=== PATIENT | female | born 1985 | race Two or more races ===

== ENCOUNTER 2018-06-02 16:30 | Inpatient (IN) | payer OTHER ==
[2018-06-02] MEDS ORDERED: TUBERCULIN PPD 5 TU/0.1ML SYRINGE (IN PATIENT USE ONLY) ID ONE ×2 (16:56→18:00)
[2018-06-02 17:25] VITALS: BMI 32.1
[2018-06-02] MEDS ORDERED: DEXTROSE 5%-LACTATED RINGERS 1,000 ML IV SCH ×2 (18:15→23:15)
[2018-06-02] MEDS ORDERED: DINOPROSTONE 10 MG VAGINAL SUPPOSITORY VG ONE (18:15)
[2018-06-02 18:21] LABS: BASO % 0.7 % (0-2.0); EOS % 1.9 % (0-4.5); HEMATOCRIT 28.4 % (32.4-45.2); HEMOGLOBIN 9.4 GM/dL (10.7-15.3); LYMPH % 24.6 % (8-40); MCH 25.1 pg (25.7-33.7); MCHC 33.3 g/dl (32.0-36.0); MEAN CELL VOLUME 75.5 fl (80-96); MEAN PLT VOLUME 9.6 fl (7.5-11.1); MONO % 6.3 % (3.8-10.2); NEUT % 66.5 % (42.8-82.8); PLATELET COUNT 262 K/MM3 (134-434); RBC 3.76 M/mm3 (3.60-5.2); RDW 17.6 % (11.6-15.6); WHITE BLOOD COUNT 6.7 K/mm3 (4.0-10.0)
[2018-06-02 18:40] LABS: INR 0.92 (0.83-1.09); PROTHROMBIN TIME (PATIENT) 10.4 SEC (9.7-13.0)
[2018-06-02 18:43] LABS: ACTIVATED PTT 26.2 SECONDS (25.2-36.5)
[2018-06-02 19:17] LABS: ANION GAP 10 (8-16); BLOOD UREA NITROGEN 10 mg/dL (7-18); CALCIUM 8.8 mg/dL (8.5-10.1); CHLORIDE 107 mmol/L (98-107); CO2 25 mmol/L (21-32); CREATININE 0.7 mg/dL (0.55-1.02); GLUCOSE,RANDOM 86 mg/dL (74-106); SODIUM 142 mmol/L (136-145)
--- NOTE | 2018-06-02 21:19 | HP ---
Past Medical History - Primary Care Physician PCP:: Rene Vargas - Admission Chief Complaint: 39.6 weeks, for cervidil induction History of Present Illness: 32 yo f edc by sono 06/03/18 39.6 weeks ,had isolated heart late deceleration, in office , had 06/01 BPP, was referred for cervidil induction , patient has irregular contraction with several variable with late component , variability is good . low dose pitocin vs observation ,also c/s discussed , risks explained , requesting to have c/s, risks of c/s discussed History Source: Patient Limitations to Obtaining History: No Limitations - Past Medical History ...: 3 ...Para: 1 ...Term: 1 ...: 0 ...Spon : 0 ...Induced : 1 ...Multiple Gestation: 0 ...LMP: 07/08/17 ...EDC by Dates: 04/14/18 ...EDC by Sono: 06/03/18 Heme/Onc: Yes: Anemia - Past Surgical History Past Surgical History: Yes: Breast Biopsy Hx Myomectomy: No Hx Transabdominal Cerclage: No - Smoking History Smoking history: Never smoked Have you smoked in the past 12 months: No - Alcohol/Substance Use Hx Alcohol Use: No History of Substance Use: reports: None - Social History Usual Living Arrangement: Yes: With Spouse History of Recent Travel: No Home Medications - Allergies Allergies/Adverse Reactions: Allergies Allergy/AdvReac Type Severity Reaction Status Date / Time Penicillins Allergy Mild Itching Verified 06/02/18 17:00 - Home Medications Home Medications: Ambulatory Orders One Tablet 1 tab PO DAILY 05/27/18 Review of Systems - Review of Systems Constitutional: reports: No Symptoms Eyes: reports: No Symptoms HENT: reports: No Symptoms Neck: reports: No Symptoms Cardiovascular: reports: No Symptoms Respiratory: reports: No Symptoms Gastrointestinal: reports: No Symptoms Genitourinary: reports: No Symptoms Breasts: reports: No Symptoms Reported Musculoskeletal: reports: No Symptoms Integumentary: reports: No Symptoms Neurological: reports: No Symptoms Endocrine: reports: No Symptoms Hematology/Lymphatic: reports: No Symptoms Psychiatric: reports: No Symptoms Physical Exam - Maternity Vital Signs: Vital Signs Temperature 98.6 F 06/02/18 18:00 Pulse Rate 88 06/02/18 20:44 Respiratory Rate 20 06/02/18 20:44 Blood Pressure 120/66 06/02/18 20:44 O2 Sat by Pulse Oximetry (%) Constitutional: Yes: Well Nourished, No Distress, Calm Eyes: Yes: WNL, Conjunctiva Clear, EOM Intact HENT: Yes: WNL, Atraumatic, Normocephalic Neck: Yes: WNL, Supple, Trachea Midline Cardiovascular: Yes: WNL, Regular Rate and Rhythm Breast(s): Yes: WNL - Abdominal Exam/OB Fundal Height: 38 Number of Fetuses: Single Presentation: Vertex Contractions: Yes Regularity: Irregular Intensity: Unaware Monitor Mode: External Heart Rate Location: [facility] Category: II Accelerations: Uniform Decelerations: Variable - Vaginal Exam/OB Vaginal Bleediing: No Dilatation (cm): o Effacement (%): o Amniotic Membrane Status: Intact Presentation: Vertex/Position Station: -4 - Physical Exam Edema: LLE: Trace, RLE: Trace Deep Tendon Reflex Grade: Normal +2 ...Motor Strength: WNL Psychiatric: Yes: WNL - Labs Lab Results: CBC, BMP 06/02/18 17:00 06/02/18 17:00 Hemorrhage Risk Assessment - Risk Factors Medium Risk Factors: Yes: Hematocrit < 30% & other Risk Score: 1 Risk Level: Medium Risk Problem List - Problems (1) with 39 completed weeks gestation Code(s): Z3A.39 - 39 WEEKS GESTATION OF (2) Non-reassuring heart rate or rhythm affecting management of fetus Code(s): CDR7181 - Assessment/Plan plan c/s, rba discussed
[2018-06-02] MEDS ORDERED: ONDANSETRON 4 MG/2 ML VIAL IVPUSH PRN (21:37)
[2018-06-02] MEDS ORDERED: CITRIC ACID/SODIUM CITRATE 30 ML UNIT-DOSE CUP PO ONE (21:38)
[2018-06-02] MEDS ORDERED: ELECTROLYTE-148 SOLN 1,000 ML IV SCH (21:45)
[2018-06-02] MEDS ORDERED: morphine SULFATE/Preservative Free 0.5 MG/ML (1cc Syringe) ONE (21:54)
[2018-06-02] MEDS ORDERED: KETOROLAC TROMETHAMINE 30 MG/1 ML VIAL ONE (22:14)
[2018-06-02] MEDS ORDERED: ePHEDrine SULFATE 50 MG/1 ML AMPULE ONE (22:19)
[2018-06-02] MEDS ORDERED: SODIUM CHLORIDE 0.9% P/F 10 ML VIAL IJ ONE (22:21)
[2018-06-02] MEDS ORDERED: ceFAZolin SODIUM 1 GM VIAL ONE (22:21)
[2018-06-02] MEDS ORDERED: MIDAZOLAM HCL 2 MG/2 ML SINGLE DOSE VIAL ONE (22:43)
[2018-06-02] MEDS ORDERED: BENZOCAINE 20% 57 GM BOTTLE TP PRN (23:04)
[2018-06-02] MEDS ORDERED: WITCH HAZEL 50% (TUCKS) 40 PAD/JAR PAD TP PRN (23:04)
[2018-06-02] MEDS ORDERED: BENZOCAINE 28 GM HEMORRHOIDAL OINTMENT PR PRN (23:04)
[2018-06-02] MEDS ORDERED: oxyCODONE HCL 5 MG TABLET PO PRN ×2 (23:04)
[2018-06-02] MEDS ORDERED: METHYLERGONOVINE MALEATE 0.2 MG/1 ML AMP IM PRN (23:04)
[2018-06-02] MEDS ORDERED: diphenhydrAMINE HCL 25 MG CAPSULE (FP) PO PRN (23:04)
[2018-06-02] MEDS ORDERED: OXYTOCIN 20 UNITS in 0.9% NS 20 UNIT/1,000 ML INFUS.BAG IV SCH (23:30)
[2018-06-02 23:33] LABS: ARTERIAL BLOOD GAS BASE EXCESS -1.3 meq/l (-2-2)
[2018-06-02 23:36] LABS: VENOUS PC02 45.6 mmHg (38-52); VENOUS PH 7.37 (7.32-7.42)
[2018-06-02 23:37] LABS: VENOUS PO2 23.2 mmHg (28-48)
[2018-06-02 23:38] LABS: ARTERIAL BLD GAS O2 SATURATION 8.5 % (90-98.9); ARTERIAL BLOOD GAS PCO2 66.5 mmHg (35-45); ARTERIAL BLOOD GAS PO2 8.3 mmHg (80-100); ARTERIAL BLOOD GAS pH 7.24 (7.35-7.45)
[2018-06-02] MEDS ORDERED: OXYTOCIN 20 UNITS in 0.9% NS 20 UNIT/1,000 ML INFUS.BAG IV ONE (23:59)
[2018-06-03] MEDS ORDERED: IBUPROFEN 800 MG/8 ML IJ IVPB ONE (00:08)
[2018-06-03] MEDS: IBUPROFEN 800 MG/8 ML IJ IVPB PRN ×2 (00:15→14:11)
[2018-06-03] MEDS ORDERED: DEXTROSE 5%-WATER - 50 ML IVPB ONE ×2 (02:41→08:58)
[2018-06-03] MEDS ORDERED: ceFAZolin SODIUM 1 GM VIAL ONE ×2 (02:41→08:58)
[2018-06-03] MEDS: CEFAZOLIN 1 GM in DEXTROSE 5%-WATER - 50 ML IVPB SCH ×2 (02:45→09:01)
--- NOTE | 2018-06-03 07:48 | PN ---
Progress Note (short form) - Note Progress Note: pod 1 s/p primary c/s , doing well, has mild cramps CBC, BMP 06/02/18 17:00 06/02/18 17:00 Last Vital Signs Temp Pulse Resp BP Pulse Ox 98.0 F 52 L 18 100/52 100 06/03/18 05:54 06/03/18 05:54 06/03/18 07:00 06/03/18 05:54 06/03/18 00:20 abdomen soft, no distension, no cva uterus firm incision dry, clean no excess vaginal bleedinf no calf tenderness plan ambulate , cbc, advance diet Problem List - Problems (1) with 39 completed weeks gestation Code(s): Z3A.39 - 39 WEEKS GESTATION OF (2) Non-reassuring heart rate or rhythm affecting management of fetus Code(s): MBV4325 -
--- NOTE | 2018-06-03 08:02 | PN ---
Progress Note (short form) - Note Progress Note: Anesthesia Post-op Note Pt s/p C/S on 06/02/18 under spinal with duramorph. Pt reports that she is doing well. Able to move legs and reports normal motor and sensory function. Pain and nausea controlled. Vital Signs Temperature 98.0 F 06/03/18 05:54 Pulse Rate 52 L 06/03/18 05:54 Respiratory Rate 18 06/03/18 07:58 Blood Pressure 100/52 06/03/18 05:54 O2 Sat by Pulse Oximetry (%) 100 06/03/18 00:20 Continue current management. OOB. Encourage ISS. Bowel regimen with pain medication.
[2018-06-03 08:39] LABS: BASO % 0.4 % (0-2.0); EOS % 0.4 % (0-4.5); HEMATOCRIT 25.2 % (32.4-45.2); HEMOGLOBIN 8.4 GM/dL (10.7-15.3); LYMPH % 18.6 % (8-40); MCH 25.3 pg (25.7-33.7); MCHC 33.5 g/dl (32.0-36.0); MEAN CELL VOLUME 75.7 fl (80-96); MEAN PLT VOLUME 9.5 fl (7.5-11.1); MONO % 5.5 % (3.8-10.2); NEUT % 75.1 % (42.8-82.8); PLATELET COUNT 205 K/MM3 (134-434); RBC 3.33 M/mm3 (3.60-5.2); RDW 17.2 % (11.6-15.6); WHITE BLOOD COUNT 9.9 K/mm3 (4.0-10.0)
[2018-06-03] MEDS: ENOXAPARIN NA (PORCINE) 40 MG/0.4 ML DISP.SYRIN SQ SCH (09:01)
[2018-06-03] MEDS: ACETAMINOPHEN 325 MG TABLET (FP) PO PRN ×2 (14:38→19:53)
[2018-06-03] MEDS: SIMETHICONE 80 MG TAB.CHEW (FP) PO PRN ×2 (14:39→19:53)
--- NOTE | 2018-06-03 15:28 | OP ---
DATE OF OPERATION: 06/02/2018 PREOPERATIVE DIAGNOSES: , 40 weeks, nonreassuring heart rate and category 2 heart rate. PROCEDURE: Primary low-segment transverse section. SURGEON: Rene Vargas MD MANAGER OF SOFTWARE: TARAS Osborn ANESTHESIA: Spinal. ANESTHESIOLOGIST: ESTIMATED BLOOD LOSS: 500 mL. FINDING: A live baby girl, 9, 9, right occiput transverse position with the cord around the neck x1. OPERATION: Patient was taken to the operating room. Under adequate spinal anesthesia abdomen and perineum were prepped and draped. Pfannenstiel abdominal skin incision was made. Abdominal wall was cut layer by layer until peritoneum was exposed and incised. Upon entering the abdominal cavity lower uterine segment was identified and uterovesical fold of peritoneum established. Bladder was pushed down. Then with the low blade of the Eleuterio retractor in the pelvis a low transverse uterine incision was made. The incision extended laterally. Amniotic sac was entered, clear fluid. There was a tight nuchal cord which was reduced and live baby girl was delivered without any difficulty. Placenta was delivered manually. Uterine cavity was cleaned of all remaining tissue. Uterine incision was closed in 2 layers, 1st layer with 0 Biosyn continuous suture, the 2nd layer with 0 Biosyn imbricating the 1st layer. Bladder flap was closed with 0 Biosyn continuous suture. Both tubes and ovaries were checked, were normal. No active bleeding was seen. All the lap packs, sponge and instrument counts were correct. Then peritoneum was closed with 0 Biosyn continuous suture. Muscles were brought together with interrupted suture of 3-0 Biosyn. Fascia was closed with 0 Biosyn continuous suture, subcutaneous fat with interrupted suture of 0 Biosyn and the skin was closed with 4-0 Biosyn subcuticular continuous suture. Patient tolerated procedure well, left the OR in good condition. Kayla DE LA [id number]
[2018-06-03] MEDS: IBUPROFEN 600 MG TABLET (FP) PO PRN (19:53)
[2018-06-03] MEDS: SENNOSIDES/DOCUSATE COMBO (SENNA PLUS) TABLET (UD) PO PRN (22:37)
[2018-06-03] MEDS ORDERED: BISACODYL 10 MG SUPP.RECT RC PRN (23:04)
[2018-06-04] MEDS: IBUPROFEN 600 MG TABLET (FP) PO PRN ×3 (04:09→19:11)
[2018-06-04] MEDS: ACETAMINOPHEN 325 MG TABLET (FP) PO PRN ×3 (04:09→19:12)
[2018-06-04] MEDS: SIMETHICONE 80 MG TAB.CHEW (FP) PO PRN ×3 (04:09→19:11)
--- NOTE | 2018-06-04 10:08 | PN ---
Post Progress Note - Subjective Subjective: Patient without acute complaints. Reports tolerating oral intake without nausea or vomiting. Ambulating without dizziness. Denies fevers or chills. Pain well controlled with oral pain medication. without difficulty. Passing flatus. Post Day: 2 Type of Delivery: Primary C/S Vital Signs: Vital Signs Temperature 98.4 F 06/04/18 09:13 Pulse Rate 91 H 06/04/18 09:13 Respiratory Rate 20 06/04/18 09:13 Blood Pressure 119/65 06/04/18 09:13 O2 Sat by Pulse Oximetry (%) 100 06/03/18 00:20 Breast Exam: Yes: Engorged Uterus: Yes: Fundus Firm Incision: Yes: Sutures intact. No: Redness, Oozing Abdomen/GI: Yes: Abdomen soft, Tender (mild incisional), Passing flatus, Tolerating PO. No: Abdominal Distention Lochia: Yes: Serosa Lochia, amount: Small Extremities: Yes: Calves non-tender, Edema (trace). No: Calf tenderness Activity: Ambulating - Labs Labs: CBC WBC 9.9 K/mm3 (4.0-10.0) 06/03/18 07:20 RBC 3.33 M/mm3 (3.60-5.2) L 06/03/18 07:20 Hgb 8.4 GM/dL (10.7-15.3) L 06/03/18 07:20 Hct 25.2 % (32.4-45.2) L 06/03/18 07:20 MCV 75.7 fl (80-96) L 06/03/18 07:20 MCH 25.3 pg (25.7-33.7) L 06/03/18 07:20 MCHC 33.5 g/dl (32.0-36.0) 06/03/18 07:20 RDW 17.2 % (11.6-15.6) H 06/03/18 07:20 Plt Count 205 K/MM3 (134-434) D 06/03/18 07:20 MPV 9.5 fl (7.5-11.1) 06/03/18 07:20 Absolute Neuts (auto) 7.5 # 06/03/18 07:20 Neutrophils % 75.1 % (42.8-82.8) 06/03/18 07:20 Lymphocytes % 18.6 % (8-40) D 06/03/18 07:20 Monocytes % 5.5 % (3.8-10.2) 06/03/18 07:20 Eosinophils % 0.4 % (0-4.5) 06/03/18 07:20 Basophils % 0.4 % (0-2.0) 06/03/18 07:20 Nucleated RBC % 0 % (0-0) 06/03/18 07:20 Assessment/Plan 32 yo POD # 2 s/p primary CD, afebrile, vital signs stable, doing well 1. Continue routine postoperative care. 2. Encourage ambulation and incentive spirometer use 3. Continue oral pain medication 4. Anticipate discharge home postoperative day #3 or #4
[2018-06-04] MEDS: ENOXAPARIN NA (PORCINE) 40 MG/0.4 ML DISP.SYRIN SQ SCH (10:37)
[2018-06-04 20:53] VITALS: TEMP 97.9
[2018-06-04] MEDS: FERROUS SO4 325 MG TABLET (FP) PO SCH (22:49)
[2018-06-04] MEDS: SENNOSIDES/DOCUSATE COMBO (SENNA PLUS) TABLET (UD) PO PRN (22:50)
[2018-06-05 07:54] VITALS: BP 125/80; PULSE 81
[2018-06-05 08:03] LABS: BASO % 0.7 % (0-2.0); EOS % 4.4 % (0-4.5); HEMATOCRIT 25.2 % (32.4-45.2); HEMOGLOBIN 8.4 GM/dL (10.7-15.3); LYMPH % 22.6 % (8-40); MCH 25.2 pg (25.7-33.7); MCHC 33.2 g/dl (32.0-36.0); MEAN CELL VOLUME 75.8 fl (80-96); MEAN PLT VOLUME 9.1 fl (7.5-11.1); MONO % 4.3 % (3.8-10.2); PLATELET COUNT 253 K/MM3 (134-434); RBC 3.33 M/mm3 (3.60-5.2); RDW 18.1 % (11.6-15.6); WHITE BLOOD COUNT 8.6 K/mm3 (4.0-10.0)
[2018-06-05] MEDS: SIMETHICONE 80 MG TAB.CHEW (FP) PO PRN (08:21)
[2018-06-05] MEDS: ACETAMINOPHEN 325 MG TABLET (FP) PO PRN (08:21)
[2018-06-05] MEDS: IBUPROFEN 600 MG TABLET (FP) PO PRN (08:23)
--- NOTE | 2018-06-05 08:33 | PN ---
Post Progress Note - Subjective Subjective: Patient without acute complaints. Reports tolerating oral intake without nausea or vomiting. Ambulating without dizziness. Denies fevers or chills. Pain well controlled with oral pain medication. without difficulty. Passing flatus. Post Day: 3 Type of Delivery: Primary C/S Vital Signs: Vital Signs Temperature 97.9 F 06/05/18 07:52 Pulse Rate 81 06/05/18 07:52 Respiratory Rate 20 06/05/18 07:52 Blood Pressure 125/80 06/05/18 07:52 O2 Sat by Pulse Oximetry (%) 100 06/03/18 00:20 Breast Exam: Yes: Soft Uterus: Yes: Fundus Firm, Fundus below umbilicus Incision: Yes: Sutures intact. No: Redness, Oozing Abdomen/GI: Yes: Abdomen soft, Abdominal Distention (mild soft), Tender (mild incisional), Passing flatus, Tolerating PO Lochia: Yes: Serosa Lochia, amount: Small Extremities: Yes: Calves non-tender. No: Edema Activity: Ambulating - Labs Labs: CBC WBC 8.6 K/mm3 (4.0-10.0) 06/05/18 07:15 RBC 3.33 M/mm3 (3.60-5.2) L 06/05/18 07:15 Hgb 8.4 GM/dL (10.7-15.3) L 06/05/18 07:15 Hct 25.2 % (32.4-45.2) L 06/05/18 07:15 MCV 75.8 fl (80-96) L 06/05/18 07:15 MCH 25.2 pg (25.7-33.7) L 06/05/18 07:15 MCHC 33.2 g/dl (32.0-36.0) 06/05/18 07:15 RDW 18.1 % (11.6-15.6) H 06/05/18 07:15 Plt Count 253 K/MM3 (134-434) D 06/05/18 07:15 MPV 9.1 fl (7.5-11.1) 06/05/18 07:15 Absolute Neuts (auto) 5.9 # 06/05/18 07:15 Neutrophils % 68.0 % (42.8-82.8) 06/05/18 07:15 Lymphocytes % 22.6 % (8-40) D 06/05/18 07:15 Monocytes % 4.3 % (3.8-10.2) 06/05/18 07:15 Eosinophils % 4.4 % (0-4.5) D 06/05/18 07:15 Basophils % 0.7 % (0-2.0) 06/05/18 07:15 Nucleated RBC % 0 % (0-0) 06/05/18 07:15 Assessment/Plan 32 yo POD # 3 s/p primary CD, afebrile, vital signs stable, doing well 1. Patient stable for discharge home today. 2. Patient encouraged to contact MD for: - Severe pain not controlled by oral pain medication - Fevers or chills - Nausea or vomiting, intolerance of oral intake - Incision redness, tenderness or discharge 3. Patient to follow up in office in 1-2 weeks for incision check, 4-6 weeks for visit
--- NOTE | 2018-06-05 08:37 | DS ---
Physical Exam-[employer] INTERPRETER Vital Signs: Vital Signs Temperature 97.9 F 06/05/18 07:52 Pulse Rate 81 06/05/18 07:52 Respiratory Rate 20 06/05/18 07:52 Blood Pressure 125/80 06/05/18 07:52 O2 Sat by Pulse Oximetry (%) 100 06/03/18 00:20 Labs: CBC, BMP 06/05/18 07:15 06/02/18 17:00 Delivery - Delivery Type of Anesthesia: Spinal EBL (cc): 500 Delivery, Single - Stages of Labor Date of Delivery: 06/02/18 Time of Delivery: 22:27 Time Placenta Delivered: 22:28 - Condition of Infant Supervisory Investigative Specialist/Personal Injury Paralegal Present: Yes Name: Gillian Clements Gender: Female Weight: 7 lb 1 oz Position: Right, OT Total Hours ROM (Hrs/Mins): 0Hrs/2Mins - 1 Minute Total Score: 9 5 Minutes Total Score: 9 - [place] Feeding Plan Initial Plan: Exclusive throughout hospitalization Discharge Summary Reason For Visit: CERVIDIL INDUCTION Current Active Problems delivery delivered (Acute) Non-reassuring heart rate or rhythm affecting management of fetus (Acute) with 39 completed weeks gestation (Acute) Procedures: Principal: delivery Hospital Course: Patient was admitted for induction of labor for late deceleration on testing She was admitted, late deceleations were noted. She was counseled regarding continuing induction vs delivery; she opted for delivery POD # 1 patient ambulated, voiding, passing gas, tolerating oral intake and with adequate pain control. Noted to have mild asymptomatic anemia She fulfilled all criteria for discharge POD #3 Condition: Good - Instructions Diet, Activity, Other Instructions: Physical activity Resume your normal everyday activity as tolerated no heavy lifting or exercise until seen by your surgeon. You may walk unlimited elaina of and climb stairs. You may resume driving the car when you feel safe and comfortable behind the wheel. No sexual activity as instructed. Wound care If you have a bandage, leave it on, and keep dry for 48-72 hours. After that time discard the outer bandage. If they are tapes on the skin under the out of bandage leave them in place. They will peel off in the next 7 to 10 days. Do Not Peel them off. You may shower the day after surgery. If there are tapes present on the skin, you may shower over them. Diet There are no dietary restrictions. Eat healthy, high-fiber foods. Drink 6 to 8 glasses of liquid each day. This will assist in keeping your bowels are regular. Pain management You may take Tylenol or acetaminophen or Ibuprofen (for example, Motrin, Advil etc.) from my pain prescription medication is ordered should be taken as prescribed for moderate to severe pain. Call MD for any of the following: Severe pain not relieved by medication Fever of 101 or higher Excessive bleeding or drainage on dressing Inability to urinate [facility] Reference #: [id number] Referrals: Nancy Sherman MD [Staff Physician] - Disposition: HOME - Home Medications Comprehensive Discharge Medication List: Ambulatory Orders One Tablet 1 tab PO DAILY 05/27/18 Ibuprofen [Motrin -] 600 mg PO QID #60 tablet 06/05/18 Oxycodone HCl/Acetaminophen [Percocet 5-325 mg Tablet -] 1 tab PO Q6H #20 tab MDD 4 06/05/18
[2018-06-05] MEDS: FERROUS SO4 325 MG TABLET (FP) PO SCH (10:15)
[2018-06-05] MEDS: ENOXAPARIN NA (PORCINE) 40 MG/0.4 ML DISP.SYRIN SQ SCH (10:15)
== END 2018-06-05 12:45 | disposition home or self-care (01) | DRG 540 ==
LOC: JLDR 16:30 → J3W 06-03 01:00
PROVIDERS: ADMIT Obstetrics & Gynecology; ATTEND Obstetrics & Gynecology
PROC: 10D00Z1 Extraction of Products of Conception, Low, Open Approach (ICD-10-PCS; principal; 2018-06-02)
DX: O76 Abnormality in fetal heart rate and rhythm complicating labor and delivery (principal); Z3A.39 39 weeks gestation of pregnancy; Z37.0 Single live birth
CPT/HCPCS: 36415; 36600; 80048; 82803; 85025; 85610; 85730; 86593; 86850; 86870; 86900; 86901; 86902